=== PATIENT | female | born 1950 | race Caucasian/White ===

== ENCOUNTER → 2016-11-05 | Outpatient (CLI) | payer MEDICARE, OTHER ==
--- NOTE | 2016-11-06 13:01 | MM ---
Reason for exam: screening (asymptomatic). Last mammogram was performed 1 year and 2 months ago. History: Patient is postmenopausal and had first child at age 32. Benign US biopsy breast VAD LT of the left breast, March 01, 2014. Benign excisional biopsy, 2001. Physical Findings: A clinical breast exam by your physician is recommended on an annual basis and results should be correlated with mammographic findings. MG 3D Screening Mammo W/Cad Bilateral CC and MLO view(s) were taken. Prior study comparison: September 15, 2015, bilateral MG 3d screening mammo w/cad. September 09, 2014, left breast MG diagnostic mammo LT w CAD. There are scattered fibroglandular densities. Finding: There are typically benign calcifications in both breasts. Previous mammotome biopsy in the left breast. No discrete abnormality. No significant changes in finding since September 15, 2015 and September 09, 2014. ASSESSMENT: Benign, BI-RAD 2 RECOMMENDATION: Routine screening mammogram of both breasts in 1 year.
== END | disposition home or self-care (01) ==
LOC: RADMAMWWP 07:25
PROVIDERS: ATTEND Internal Medicine
DX: Z12.31 Encounter for screening mammogram for malignant neoplasm of breast (principal)
CPT/HCPCS: 77063; G0202

== ENCOUNTER → 2017-03-04 | Outpatient (CLI) | payer MEDICARE, OTHER ==
--- NOTE | 2017-03-04 14:23 | XR ---
EXAMINATION TYPE: XR chest 2V DATE OF EXAM: 03/04/2017 HISTORY: Chills R68.83. REFERENCE: NONE. FINDINGS: The heart is enlarged. There are bibasilar infiltrates. This is greater on the left than th e right. Heart size is obscured. I cannot exclude a small left effusion. IMPRESSION: 1. BIBASILAR INFILTRATES. 2. I CANNOT EXCLUDE A SMALL LEFT EFFUSION. 3. CARDIOMEGALY.
== END | disposition home or self-care (01) ==
LOC: RADXRMAIN 13:44
PROVIDERS: ATTEND Internal Medicine
DX: R91.8 Other nonspecific abnormal finding of lung field (principal); I51.7 Cardiomegaly; R68.83 Chills (without fever)
CPT/HCPCS: 71020

== ENCOUNTER → 2017-04-01 | Outpatient (CLI) | payer MEDICARE, OTHER ==
--- NOTE | 2017-04-01 15:51 | XR ---
EXAMINATION TYPE: XR chest 2V DATE OF EXAM: 04/01/2017 COMPARISON: Prior chest x-ray 03/04/2017 HISTORY: Pneumonia, J18.9 TECHNIQUE: Frontal and lateral views of the chest are obtained. FINDINGS: The patient is rotated. Cardiac mediastinal silhouette, pulmonary vascularity and yolande are stable. Aeration is thought to be improved. No pneumothorax or pleural effusion is evident. IMPRESSION: Rotated exam. No acute abnormalities evident. There is improvement in lung volume.
== END | disposition home or self-care (01) ==
LOC: RADXRMAIN 14:40
PROVIDERS: ATTEND Internal Medicine
DX: J18.9 Pneumonia, unspecified organism (principal)
CPT/HCPCS: 71020

== ENCOUNTER → 2017-04-04 | Outpatient (CLI) | payer MEDICARE, OTHER ==
[2017-04-04 16:36] LABS: Blood Urea Nitrogen 29 mg/dL (7-17); Non-African American GFR(MDRD) >60 (>60 ml/min/1.73 sqM)
== END | disposition home or self-care (01) ==
LOC: LABPAT 15:44
PROVIDERS: ATTEND Anesthesiology
DX: Z01.812 Encounter for preprocedural laboratory examination (principal)
CPT/HCPCS: 82565; 84520

== ENCOUNTER 2017-04-09 09:13 | Day surgery (SDC) | payer MEDICARE, OTHER ==
[2017-04-04 14:41] VITALS: BMI 46.0
--- NOTE | 2017-04-08 22:50 | HP ---
DATE OF SURGERY: 04/09/2017 Millie Cooney is a 66-year-old patient seen with symptomatic right carpal tunnel syndrome. We discussed options. She elected to proceed with decompression of her median nerve. Consent was obtained. PAST MEDICAL HISTORY: 1. Insulin-dependent diabetes. 2. Hypertension. 3. Seizure disorder. PAST SURGICAL HISTORY: 1. section. 2. Decompression, left medial nerve. DAILY MEDICATIONS: 1. Depakote. 2. Glucotrol. 3. Lantus insulin. 4. Lasix. 5. Lisinopril. ALLERGIES: CODEINE. SOCIAL HISTORY: Patient denies current tobacco use. PHYSICAL EVALUATION OF HER RIGHT HAND: She has positive carpal compression and carpal Tinel's which caused numbness and tingling within the median nerve distribution. There is no evidence for any trigger digits. She does have some decreased light touch throughout the median nerve distribution. There is a good radial pulse present. There is good perfusion distally. Radiographs of the right wrist revealed osteoarthritic changes. EMG of the upper extremity revealed carpal tunnel syndrome. IMPRESSION: Right carpal tunnel syndrome. PLAN: Decompression, right median nerve. MTDD
[~2017-04-09 09:13] MED LIST: HYDROmorphone 1 MG/ML 1 ML SYRINGE IVP PRN; LACTATED RINGERS 1,000 ML IV SCH; LIDOCAINE 1% 20 ML VIAL (10MG/ML) FOR IV START INTRADERMA PRN; ONDANSETRON 4 MG/2 ML VIAL IVP PRN; ceFAZolin 2 GM in SODIUM CHLORIDE 0.9% 100 ML IVPB STA
[2017-04-09 09:58] VITALS: TEMP 97
[2017-04-09 10:00] LABS: Glucose,Whole Blood 130 mg/dL (75-99)
[2017-04-09] MEDS ORDERED: LIDOCAINE 1% INJ 10MG/ML (20 ML MDV) ONE (11:47)
[2017-04-09] MEDS ORDERED: MIDAZOLAM 2 MG/2 ML VIAL ONE (11:47)
[2017-04-09] MEDS ORDERED: fentaNYL (PF) 50 MCG/ML 2 ML AMP ONE (11:47)
[2017-04-09] MEDS ORDERED: PROPOFOL 10 MG/ML 20 ML VIAL IV ONE (11:47)
[2017-04-09 12:20] VITALS: RESP 16
--- NOTE | 2017-04-09 12:20 | P.OP ---
Date of Procedure: 04/09/17 Preoperative Diagnosis: Right carpal tunnel syndrome Postoperative Diagnosis: Right carpal tunnel syndrome Procedure(s) Performed: Decompression right median nerve Implants: Anesthesia: MAC, local Surgeon: Brent Sebastian Estimated Blood Loss (ml): 1 Pathology: none sent Condition: stable Disposition: PACU Indications for Procedure: 66-year-old patient seen with symptomatic carpal tunnel syndrome. After having treatment options discussed, she elected to proceed with decompression right median nerve. Operative Findings: see description of procedure Description of Procedure: The patient was taken to the operative suite. The patient received preoperative IV antibiotics. The patient underwent IV sedation by the department of anesthesia. A well-padded tourniquet was placed along the proximal right upper extremity. The right upper extremity was prepped and draped in the normal sterile orthopedic fashion. I infiltrated the proposed incision site with 12 mL of quarter percent plain Marcaine. When sufficient local analgesia was noted the extremity was elevated and tourniquet was insufflated 250. I now made an incision beginning at the distal volar wrist crease extending distally approximately 3 cm in line with the fourth metacarpal. Dissection was taken through subcu soft tissues down through the palmar fascia to the transverse carpal ligament. I now incised the transverse carpal ligament. I completed the release proximally and distally with blunt Metzenbaums. There was good complete release of the transverse carpal ligament and good decompression of the nerve. The wound was irrigated. There was good hemostasis. The skin margins are approximate nylon suture. We applied sterile dressings followed by loose web bone Paul bandage. The tourniquet was now released and we had immediate capillary refill of all digits. The patient was then awakened, transferred to recovery in stable condition.
[2017-04-09 12:42] VITALS: BP 121/58; PULSE 77
== END 2017-04-09 13:07 | disposition home or self-care (01) ==
LOC: OR 09:13
PROVIDERS: ATTEND Orthopaedic Surgery
DX: G56.01 Carpal tunnel syndrome, right upper limb (principal); E11.9 Type 2 diabetes mellitus without complications; I10 Essential (primary) hypertension; G40.909 Epilepsy, unspecified, not intractable, without status epilepticus; M10.9 Gout, unspecified; Z88.5 Allergy status to narcotic agent; Z79.4 Long term (current) use of insulin; Z79.84 Long term (current) use of oral hypoglycemic drugs; Z79.82 Long term (current) use of aspirin; Z79.899 Other long term (current) drug therapy
CPT/HCPCS: 64721; J2250; J0690; J2405; J2001; J3010; J2704

== ENCOUNTER → 2019-03-15 | Outpatient (CLI) | payer MEDICARE, OTHER ==
--- NOTE | 2019-03-15 23:30 | BD ---
EXAMINATION TYPE: Axial Bone Density DATE OF EXAM: 03/15/2019 COMPARISON:2016 CLINICAL HISTORY: 68-year-old female disorder of bone Height: 5'2 1/2 Weight: 272 FRAX RISK QUESTIONS: Secondary Osteoporosis: 3. Menopause before 45: y RISK FACTORS HISTORY OF: Active: n Postmenopausal woman: y Frequent falls: y Poor Health: y MEDICATIONS: Additional Medications: seizure disorder, metformin type 2 diabetes, Additional History: EXAM MEASUREMENTS: Bone mineral densitometry was performed using the [employer]. Bone mineral density as measured about the Lumbar spine is: ----- L1-L4(G/cm2): 1.341 T Score Values are as follows: ----- L2: 1.8 ----- L3: 1.2 ----- L4: 0.3 ----- L1-L4: 0.3 Bone mineral density has: Decreased -3.3% since study of: 09/15/2015 Bone mineral density about the R hip (g/cm2): 0.838 Bone mineral density about the L hip (g/cm2): 0.909 T Score values are as follows: -----R Neck: -1.4 -----L Neck: -0.9 -----R Total: -0.5 -----L Total: 0.2 Bone mineral density has: Decreased -9.5% since study of: 09/15/2015 IMPRESSION: Osteopenia (T Score between -2.5 and -1). There is slightly increased risk of fracture and the patient may be considered for treatment. Re-Screen 2-5 years. NOTE: T-SCORE=SD OF THE YOUNG ADULT MEAN.
--- NOTE | 2019-03-16 13:08 | MM ---
Reason for exam: screening (asymptomatic). Last mammogram was performed 1 year and 3 months ago. History: Patient is postmenopausal and had first child at age 32. Benign US biopsy breast VAD LT of the left breast, March 01, 2014. Benign excisional biopsy, 2001. Physical Findings: A clinical breast exam by your physician is recommended on an annual basis and results should be correlated with mammographic findings. MG 3D Screening Mammo W/Cad Bilateral CC and MLO view(s) were taken. Prior study comparison: December 24, 2017, bilateral MG 3d screening mammo w/cad. November 05, 2016, bilateral MG 3d screening mammo w/cad. There are scattered fibroglandular densities. Benign appearing bilateral calcifications. No suspicious abnormality. No significant changes when compared with prior studies. ASSESSMENT: Benign, BI-RAD 2 RECOMMENDATION: Routine screening mammogram of both breasts in 1 year.
== END | disposition home or self-care (01) ==
LOC: RADMAMWWP 08:48
PROVIDERS: ATTEND Internal Medicine
DX: Z12.31 Encounter for screening mammogram for malignant neoplasm of breast (principal); M85.88 Other specified disorders of bone density and structure, other site; N95.1 Menopausal and female climacteric states
CPT/HCPCS: 77063; 77067; 77080

== ENCOUNTER → 2019-07-15 | Outpatient (CLI) | payer MEDICARE, OTHER ==
--- NOTE | 2019-07-15 20:17 | CONS ---
CONSULTATION DATE OF SERVICE: 07/15/2019. 68-year-old lady who has been evaluated in the sleep center for possible obstructive sleep apnea-hypopnea syndrome. HISTORY OF PRESENT ILLNESS/SLEEP WAKE EVALUATION: SLEEP SCHEDULE: Patient's usual sleep schedule formal on 11 or 11:30 p.m. until 8:30 or 8:45 am. FALLING ASLEEP: She sometimes has problems with falling asleep. Has TV set in bedroom. DURING SLEEP: Usually sleeps on the side position by herself so no clear information about her breathing and possible snoring during the sleep. She has episodes of restless legs while falling asleep. During the night, she wakes up several times with nocturia and episodes of sweating and she has drooling from her mouth during the sleep. DURING THE DAY/SLEEP WAKE EVALUATION: In the morning, she has difficulties to pay attention, falling asleep during the day. [place] Sleepiness Scale is in very high range of 18. She may take 1 or 2 naps, usually in the afternoon. She usually feels refreshed after naps. No vivid dreams during naps. No history of hypnagogic hallucinations, sleep paralysis or cataplexy. PAST MEDICAL HISTORY: Positive for diabetes mellitus, hyperlipidemia, seizures in the past, gout. PAST SURGICAL HISTORY: Hemorrhoidectomy, , bilateral surgery for carpal tunnel syndrome. REVIEW OF SYSTEMS: Awakenings from sleep, significant excessive daytime sleepiness, swelling of the legs. FAMILY HISTORY: Family history of thyroid problems, ovarian cancer. SOCIAL HISTORY: Negative for smoking or using alcohol. MEDICATIONS: Depakote, Glucotrol, simvastatin, Lasix, metformin, allopurinol, lisinopril, spironolactone, NovoLog, different types of vitamins and aspirin. PHYSICAL EXAM: lady without distress. BP 125/61, HR 85, RR 14, height 5 feet 2 inches, weight 271.8. Body mass index 49.5, temperature 98.4, oxygen saturation on room air 100%. HEENT: Oropharynx: Low position of soft palate, Mallampati 3-4. Slight restriction of nasal breathing. Wide neck 16-3/4 inches in circumference. NECK: Supple, no JVD. Thyroid is not palpable. LUNGS: Clear to percussion and to auscultation. Good air exchange. No wheezing or rhonchi. HEART: S1, S2 regular. No murmurs, gallops, or rubs. ABDOMEN: Obese. Soft and nontender. Bowel sounds are present. No organomegaly appreciated. EXTREMITIES: 1+ bilateral ankle edema. No clubbing or cyanosis. PRESIDENT CELEBRITY ACQUISTION: Awake, alert, and oriented X3. Cranial nerves 2 to 7 intact. There is no fasciculation or atrophy. noted. No focal deficits observed. IMPRESSION: 1. Multiple awakenings from sleep, extremely low position of soft palate, Mallampati 3- 4, wide neck, significant excessive daytime sleepiness, obstructive sleep apnea- hypopnea syndrome. 2. Obesity, body mass index 49.5. 3. Diabetes mellitus. 4. History of seizures in the past. 5. History of gout. 6. History of restless leg symptoms. 7. Status post hemorrhoidectomy. 8. Status post . 9. Status post carpal tunnel syndrome surgery bilaterally. 10.Hyperlipidemia. PLAN: 1. Polysomnography for evaluation of patient's breathing during sleep. 2. CPAP/BiPAP titration if sleep study confirms obstructive sleep apnea-hypopnea syndrome. 3. Preferable position during sleep on the side. 4. No driving if patient feels any sleepiness. 5. I will see patient for follow up visit to explain results of testing and following plan. Thank you very much for referring this patient for consultation. Sincerely, Joe Oleary MD, PhD, FAASM Diplomat of [place] [employer] of Medical Specialties [place] Board of Internal Medicine [facility] [place] MMODL / IJN: [id number] /
== END | disposition home or self-care (01) ==
LOC: SLEEP 13:56
PROVIDERS: ATTEND Internal Medicine
DX: G47.33 Obstructive sleep apnea (adult) (pediatric) (principal); E66.9 Obesity, unspecified; E78.5 Hyperlipidemia, unspecified; E11.9 Type 2 diabetes mellitus without complications; Z68.42 Body mass index [BMI] 45.0-49.9, adult; Z86.69 Personal history of other diseases of the nervous system and sense organs; Z87.39 Personal history of other diseases of the musculoskeletal system and connective tissue; Z98.890 Other specified postprocedural states; Z79.4 Long term (current) use of insulin; Z79.82 Long term (current) use of aspirin; Z79.899 Other long term (current) drug therapy
CPT/HCPCS: 99211

== ENCOUNTER → 2020-12-14 | Outpatient (CLI) | payer MEDICARE, OTHER ==
--- NOTE | 2020-12-18 08:57 | MM ---
Reason for exam: screening (asymptomatic). Last mammogram was performed 1 year and 9 months ago. History: Patient is postmenopausal and had first child at age 32. Family history of breast cancer in sister at age 66. Benign US biopsy breast VAD LT of the left breast, March 01, 2014. Benign excisional biopsy, 2001. Physical Findings: A clinical breast exam by your physician is recommended on an annual basis and results should be correlated with mammographic findings. MG 3D Screening Mammo W/Cad Bilateral CC and MLO view(s) were taken. Prior study comparison: March 15, 2019, bilateral MG 3d screening mammo w/cad. December 24, 2017, bilateral MG 3d screening mammo w/cad. Finding: There is a typically benign equal density (isodense), indistinct round mass located 4 cm from the nipple in the outer quadrant, middle position of the left breast consistent with probable summation. Previous mammotome biopsy in the left breast. New finding since March 15, 2019 and December 24, 2017. ASSESSMENT: Incomplete: need additional imaging evaluation, BI-RAD 0 RECOMMENDATION: Special view mammogram of the left breast. If lesion persists on supplemental views, image directed ultrasound is recommended. [facility] will attempt to contact patient to return for supplemental views and ultrasound if indicated.
== END | disposition home or self-care (01) ==
LOC: RADMAMWWP 09:30
PROVIDERS: ATTEND Internal Medicine
DX: Z12.31 Encounter for screening mammogram for malignant neoplasm of breast (principal)
CPT/HCPCS: 77063; 77067

== ENCOUNTER → 2020-12-19 | Outpatient (CLI) | payer MEDICARE, OTHER ==
--- NOTE | 2020-12-19 13:23 | MM ---
Reason for exam: additional evaluation requested from abnormal screening. Last mammogram was performed less than 1 month ago. History: Patient is postmenopausal and had first child at age 32. Family history of breast cancer in sister at age 66. Benign US biopsy breast VAD LT of the left breast, March 01, 2014. Benign excisional biopsy, 2001. Physical Findings: Nurse did not find any significant physical abnormalities on exam. MG 3D Work Up W/Cad LT Spot compression CC, spot compression MLO, and LM view(s) were taken of the left breast. Prior study comparison: December 14, 2020, bilateral MG 3d screening mammo w/cad. March 15, 2019, bilateral MG 3d screening mammo w/cad. There are scattered fibroglandular densities. Previous mammotome biopsy in the left breast. Benign secretory calcifications. Lateral asymmetric density disperses on additional views. No significant new findings when compared with previous films. These results were verbally communicated with the patient and result sheet given to the patient on 12/19/20. ASSESSMENT: Benign, BI-RAD 2 RECOMMENDATION: Return to routine screening mammogram schedule for both breasts.
== END | disposition home or self-care (01) ==
LOC: RADMAMWWP 09:02
PROVIDERS: ATTEND Internal Medicine
DX: R92.8 Other abnormal and inconclusive findings on diagnostic imaging of breast (principal); Z78.0 Asymptomatic menopausal state; Z80.3 Family history of malignant neoplasm of breast
CPT/HCPCS: 77065; G0279; 77061

== ENCOUNTER 2021-01-10 07:36 | Day surgery (SDC) | payer MEDICARE, OTHER ==
[2021-01-05 15:48] VITALS: BMI 49.2
[~2021-01-10 07:36] MED LIST changes: -HYDROmorphone 1 MG/ML 1 ML SYRINGE IVP PRN; +LIDOCAINE 1% (10MG/ML) FOR IV START INTRADERMA PRN; -LIDOCAINE 1% 20 ML VIAL (10MG/ML) FOR IV START INTRADERMA PRN; -ONDANSETRON 4 MG/2 ML VIAL IVP PRN; -ceFAZolin 2 GM in SODIUM CHLORIDE 0.9% 100 ML IVPB STA
[2021-01-10] MEDS ORDERED: PROPOFOL 10 MG/ML 20 ML VIAL IV ONE (08:14)
[2021-01-10 08:15] VITALS: TEMP 97
[2021-01-10 08:17] LABS: Glucose,Whole Blood 145 mg/dL (75-99)
--- NOTE | 2021-01-10 08:28 | P.PCN ---
Date of Procedure: 01/10/21 Procedure(s) Performed: BRIEF HISTORY: Patient is a 70-year-old pleasant white male scheduled for an elective colonoscopy as a part of evaluation of prior history of colon polyps. Her last colonoscopy was 5 years ago. PROCEDURE PERFORMED: Colonoscopy with biopsy. PREOPERATIVE DIAGNOSIS: . history of colon polyps IV sedation per Anesthesia. PROCEDURE: After informed consent was obtained, the patient, was brought into the endoscopy unit. IV sedation was administered by Anesthesia under continuous monitoring. Digital rectal examination was normal. Initially the Olympus CF-160 flexible video colonoscope was then inserted in the rectum, gradually advanced into the cecum without any difficulty. Careful examination was performed as the scope was gradually being withdrawn. Ileocecal valve and the appendiceal orifice were visualized and appeared normal. Prep was excellent. Mucosa of the cecum, appeared normal. Ascending colon there was a 2 mm polyp that was removed by cold biopsy. Rest of the ascending colon, transverse colon, descending colon, sigmoid colon, and rectum appeared normal. Retroflexion was performed in the rectum and no lesions were seen. The patient tolerated the procedure well. IMPRESSION: 3 mm ascending colon polyp status post removal by cold biopsy Rest of the colon appeared normal RECOMMENDATIONS: Findings of this examination were discussed with the patient as well as her family. She was advised to follow with the biopsy results. If the biopsy shows an adenoma she can have a repeat colonoscopy in 5 years
[2021-01-10 08:38] VITALS: RESP 16
[2021-01-10 08:54] VITALS: BP 111/53; PULSE 85
== END 2021-01-10 09:05 | disposition home or self-care (01) ==
LOC: ORWHC2ENDO 07:36
PROVIDERS: ATTEND Internal Medicine Gastroenterology
DX: Z12.11 Encounter for screening for malignant neoplasm of colon (principal); D12.2 Benign neoplasm of ascending colon; Z86.010 Personal history of colon polyps; I10 Essential (primary) hypertension; E78.5 Hyperlipidemia, unspecified; G47.33 Obstructive sleep apnea (adult) (pediatric); E11.9 Type 2 diabetes mellitus without complications; N28.9 Disorder of kidney and ureter, unspecified; E07.9 Disorder of thyroid, unspecified; M10.9 Gout, unspecified; G40.909 Epilepsy, unspecified, not intractable, without status epilepticus; Z79.82 Long term (current) use of aspirin; Z79.899 Other long term (current) drug therapy; Z79.4 Long term (current) use of insulin; Z88.5 Allergy status to narcotic agent
CPT/HCPCS: 88305; 45380; J2704

== ENCOUNTER 2021-03-08 06:09 | Emergency (ER) | payer MEDICARE, OTHER ==
[2021-03-08] MEDS ORDERED: KETOROLAC 15 MG/ML 1 ML VIAL IM STA (06:31)
--- NOTE | 2021-03-08 06:39 | ED ---
General Adult HPI - General Chief complaint: Back Pain/Injury Stated complaint: Back Pain Time Seen by Provider: 03/08/21 06:18 Source: EMS, RN notes reviewed Mode of arrival: EMS Limitations: no limitations - History of Present Illness Initial comments: 70-year-old female with a past medical history of diabetes mellitus, carpal tunnel, gout presents to the emergency room for a chief complaint of back pain. Patient reports that she was getting out of bed this morning to go to the bathroom and felt a sudden pain in the right low back. States it radiated around into her right hip and shot down her right leg. Patient states when she walks or lifts her leg it worsens the pain. Patient did not take anything for the pain. Patient denies bladder or bowel changes, saddle anesthesia, fever, weakness of the legs. Patient denies any injury to the back.Patient has no other complaints at this time including shortness of breath, chest pain, abdominal pain, nausea or vomiting, headache, or visual changes. - Related Data Home Medications Medication Instructions Recorded Confirmed Aspirin 81 mg PO DAILY 07/10/15 01/10/21 Biotin 5 mg PO 1200 07/10/15 01/10/21 Divalproex [Depakote] 500 mg PO BID 07/10/15 01/10/21 Multivitamins, Thera [Theragran] 1 each PO DAILY 07/10/15 01/10/21 allopurinoL [Zyloprim] 300 mg PO DAILY 07/10/15 01/10/21 glipiZIDE [Glucotrol] 10 mg PO BID 07/10/15 01/10/21 lisinopriL [Zestril] 5 mg PO HS 07/10/15 01/10/21 metFORMIN HCL [Glucophage] 500 mg PO DAILY 04/04/17 01/10/21 Furosemide [Lasix] 60 mg PO DAILY 01/05/21 01/10/21 Insulin Aspart [NovoLOG Flexpen] 14 units SQ TID 01/05/21 01/10/21 Insulin Glargine,Hum.rec.anlog 46 unit SQ HS 01/05/21 01/10/21 [Basaglar Kwikpen U-100] Levothyroxine Sodium [Synthroid] 50 mcg PO DAILY 01/05/21 01/10/21 Simvastatin [Zocor] 20 mg PO HS 01/05/21 01/10/21 Spironolactone 25 mg PO BID 01/05/21 01/10/21 Previous Rx's Medication Instructions Recorded Acetaminophen [Tylenol] 500 mg PO Q4-6H PRN #20 tab 03/08/21 Allergies Allergy/AdvReac Type Severity Reaction Status Date / Time codeine Allergy "high" Verified 01/10/21 08:02 feeling Review of Systems ROS Statement: Those systems with pertinent positive or pertinent negative responses have been documented in the HPI. ROS Other: All systems not noted in ROS Statement are negative. Past Medical History Past Medical History: Diabetes Mellitus, Seizure Disorder Additional Past Medical History / Comment(s): gout, carpal tunnel rt History of Any Multi-Drug Resistant Organisms: None Reported Past Surgical History: Breast Surgery, Section, Orthopedic Surgery, Tubal Ligation Additional Past Surgical History / Comment(s): hemorroidectomy,geronimo breast biopsies, rt lumpectomy, bilat carpal tunnel Past Anesthesia/Blood Transfusion Reactions: Previous Problems w/ Anesthesia Additional Past Anesthesia/Blood Transfusion Reaction / Comment(s): postop- "moisture in my lungs"- cough for 3 weeks and on antibiotics Past Psychological History: No Psychological Hx Reported Smoking Status: Never smoker Past Alcohol Use History: None Reported Past Drug Use History: None Reported - Past Family History Mother Family Medical History: Cancer Father Family Medical History: Cancer General Exam Limitations: no limitations General appearance: alert, in no apparent distress Head exam: Present: atraumatic, normocephalic, normal inspection Eye exam: Present: normal appearance, PERRL, EOMI. Absent: scleral icterus, conjunctival injection, periorbital swelling ENT exam: Present: normal exam, mucous membranes moist Neck exam: Present: normal inspection, full ROM. Absent: tenderness, meningismus, lymphadenopathy Respiratory exam: Present: normal lung sounds bilaterally. Absent: respiratory distress, wheezes, rales, rhonchi, stridor Cardiovascular Exam: Present: regular rate, normal rhythm, normal heart sounds. Absent: systolic murmur, diastolic murmur, rubs, gallop, clicks GI/Abdominal exam: Present: soft, normal bowel sounds. Absent: distended, tenderness, guarding, rebound, rigid Extremities exam: Present: normal capillary refill (Capillary refill less than 2 seconds, DP pulse 2+ right lower extremity.), pedal edema (She does have bilateral pedal edema which she states is chronic), other (Positive straight leg raise test). Absent: calf tenderness Back exam: Present: paraspinal tenderness (Right-sided lumbar paraspinal tenderness.). Absent: vertebral tenderness Course Vital Signs 03/08/21 03/08/21 03/08/21 06:11 07:01 07:45 Temperature 98.4 F Pulse Rate 89 81 81 Respiratory 18 18 18 Rate Blood Pressure 136/69 132/48 126/49 O2 Sat by Pulse 96 96 93 L Oximetry Medical Decision Making - Medical Decision Making Vitals are stable. Patient well-appearing. She has right-sided low back pain that radiates to the right leg. Positive straight leg raise test. DP pulse 2+. Chronic pedal edema. Patient given Toradol and Norflex and did have significant permanent symptoms. She was able to get up without difficulty to use the bathroom. Patient is diabetic, sugars have been running 120-140. Patient likely has lumbar radiculopathy. We will try tramadol for patient as needed. She can also try Tylenol. She will follow-up with her doctor and ortho. She will return for any worsening symptoms. Patient will not be started on steroids given diabetes. - Lab Data Lab Results 03/08/21 Range/Units 06:48 Urine Color Yellow Urine Appearance Clear (Clear) Urine pH 7.0 (5.0-8.0) Ur Specific [place] 1.011 (1.001-1.035) Urine Protein 1+ H (Negative) Urine Glucose (UA) 4+ H (Negative) Urine Ketones Trace H (Negative) Urine Blood Trace H (Negative) Urine Nitrite Negative (Negative) Urine Bilirubin Negative (Negative) Urine Urobilinogen <2.0 (<2.0) mg/dL Ur Leukocyte Esterase Negative (Negative) Urine RBC 1 (0-5) /hpf Urine WBC 1 (0-5) /hpf Ur Squamous Epith Cells 2 (0-4) /hpf Urine Bacteria Rare H (None) /hpf Disposition Clinical Impression: Mechanical back pain, Lumbar radiculopathy Disposition: HOME SELF-CARE Condition: Good Instructions (If sedation given, give patient instructions): Acute Low Back Pain (ED) Additional Instructions: Please take Tylenol for pain. If pain is severe take tramadol. Remember tramadol can increase risk of falls. follow-up with orthopedics and primary care. Return to the emergency room for any worsening symptoms. Prescriptions: Acetaminophen [Tylenol] 500 mg PO Q4-6H PRN #20 tab PRN Reason: Pain Is patient prescribed a controlled substance at d/c from ED?: No Referrals: Michael Matute MD [Primary Care Provider] - 1-2 days Time of Disposition: 08:22
[2021-03-08] MEDS: ORPHENADRINE 30 MG/ML 2 ML VIAL IM STA ×2 (06:53→06:56)
[2021-03-08] MEDS ORDERED: ORPHENADRINE 30 MG/ML 2 ML VIAL IVP STA (06:55)
[2021-03-08] MEDS ORDERED: KETOROLAC 15 MG/ML 1 ML VIAL IVP STA (06:55)
--- NOTE | 2021-03-08 07:49 | XR ---
EXAMINATION TYPE: XR lumbar spine 2 or 3V DATE OF EXAM: 03/08/2021 CLINICAL HISTORY: Pain, right lumbar radiculopathy TECHNIQUE: Frontal, lateral, and oblique images of the lumbar spine are obtained. COMPARISON: None FINDINGS: For counting, there are 6 lumbar vertebral bodies with partial sacralization of L6. Mainten ance of the normal lumbar lordosis. No loss of vertebral body height to suggest acute compression fra cture. There are degenerative changes including anterior osteophytes, mild multilevel intervertebral disc space narrowing and facet hypertrophy. Atherosclerotic abdominal aorta. Paravertebral soft tissu es are otherwise grossly unremarkable. IMPRESSION: 1. Multilevel degenerative changes including intervertebral disc space narrowing, anterior osteophyte s, and facet hypertrophy.
--- NOTE | 2021-03-08 07:56 | XR ---
EXAMINATION TYPE: XR pelvis AP view DATE OF EXAM: 03/08/2021 CLINICAL HISTORY: Pelvic pain TECHNIQUE: A single AP view of the pelvis is obtained. COMPARISON: None. FINDINGS: There is no acute fracture/dislocation evident in the pelvis on this single view. Mild deg enerative narrowing and sclerosis of the acetabula bilaterally suggestive of mild osteoporosis. Degen erative changes of lower lumbar spine. The overlying soft tissue appears unremarkable. IMPRESSION: 1. No evidence of acute fracture of the pelvis. Mild degenerative changes of the hips.
[2021-03-08 08:01] LABS: Appearance,Urine Clear (Clear); Bacteria,Urine Rare /hpf; Bilirubin,Urine Negative (Negative); Blood,Urine Trace (Negative); Color,Urine Yellow; Glucose,Urine (UA) 4+ (Negative); Ketones,Urine Trace (Negative); Leukocyte Esterase,Urine Negative (Negative); Nitrite,Urine Negative (Negative); Protein,Urine 1+ (Negative); RBC,Urine 1 /hpf (0-5); Specific Gravity,Urine 1.011 (1.001-1.035); Squamous Epithelial Cell,Urine 2 /hpf (0-4); Urobilinogen,Urine <2.0 mg/dL (<2.0); WBC,Urine 1 /hpf (0-5)
[2021-03-08] MEDS ORDERED: traMADol 50 MG STARTER PACK 3 TAB BTL PO STA (08:23)
[2021-03-08 08:44] LABS: Glucose,Whole Blood 146 mg/dL (75-99)
[2021-03-08 08:54] VITALS: BP 143/66; PULSE 80; RESP 16; TEMP 97.7
== END 2021-03-08 08:55 | disposition home or self-care (01) ==
LOC: EC 06:09
DX: M54.16 Radiculopathy, lumbar region (principal); E11.9 Type 2 diabetes mellitus without complications; Z79.4 Long term (current) use of insulin; Z98.51 Tubal ligation status; Z79.82 Long term (current) use of aspirin
CPT/HCPCS: 36415; 81001; 72100; 72170; 99284; 96374; 96375; J2360; J1885

== ENCOUNTER → 2021-03-26 | Outpatient (CLI) | payer MEDICARE, OTHER ==
[2021-03-26 14:56] LABS: HCT 37.1 % (37.2-46.3); HGB 11.7 g/dL (12.0-15.0); MCH 28.5 pg (27.0-32.0); MCHC 31.5 g/dL (32.0-37.0); MCV 90.5 fL (80.0-97.0); Mean Platelet Volume 9.3 fL (9.5-12.2); Platelet Count 341 X 10*3/uL (140-440); RDW 13.8 % (11.5-14.5); WBC 8.52 X 10*3/uL (4.50-10.00)
[2021-03-26 15:55] LABS: African American GFR (CKD) 66.6 (60.0-200.0); Albumin 4.3 g/dL (3.80-4.90); Albumin/Globulin Ratio 1.95 (1.60-3.17); Anion Gap 8.3 mmol/L (4.00-12.00); Calcium 9.1 mg/dL (8.7-10.3); Carbon Dioxide 25.7 mmol/L (21.6-31.8); Chol/HDL Ratio 2.9; Globulin 2.2 g/dL (1.6-3.3); LDL Cholesterol,Calculated 70.8 mg/dL (0.0-131.0); Non-African American GFR(CKD) 57.4 (60.0-200.0); Potassium 5.2 mmol/L (3.5-5.5); Total Bilirubin 0.3 mg/dL (0.3-1.2); Total Protein 6.5 g/dL (6.2-8.2); VLDL Calculation 24.2 mg/dL (5.00-40.00)
== END | disposition home or self-care (01) ==
LOC: LABWHC1 08:42
PROVIDERS: ATTEND Internal Medicine Interventional Cardiology
DX: E78.2 Mixed hyperlipidemia (principal); I10 Essential (primary) hypertension; R60.0 Localized edema
CPT/HCPCS: 36415; 80053; 80061; 83880; 84443; 85027

== ENCOUNTER → 2022-02-07 | Outpatient (CLI) | payer MEDICARE ==
[2022-02-07 12:18] LABS: Creatinine,Urine Random 57.4 mg/dL; Protein/Creatinine Ratio,Urine 0.279
[2022-02-07 14:25] LABS: Basophils # (A) 0.05 X 10*3/uL (0.00-0.10); Basophils % (A) 0.7 %; Eosinophils # (A) 0.15 X 10*3/uL (0.04-0.35); Eosinophils % (A) 2.1 %; HCT 41.1 % (37.2-46.3); HGB 12.7 g/dL (12.0-15.0); Immature Grans, Automated 1.1 %; Lymphocytes # (A) 1.81 X 10*3/uL (0.90-5.00); Lymphocytes % (A) 25.5 %; MCH 28.5 pg (27.0-32.0); MCHC 30.9 g/dL (32.0-37.0); MCV 92.2 fL (80.0-97.0); Mean Platelet Volume 9.8 fL (9.5-12.2); Monocytes # (A) 0.54 X 10*3/uL (0.20-1.00); Monocytes % (A) 7.6 %; NRBC Per 100 WBC 0 /100 WBCS (0.0-0.0); Neutrophils # (A) 4.46 X 10*3/uL (1.80-7.70); Platelet Count 318 X 10*3/uL (140-440); RBC 4.46 X 10*6/uL (4.10-5.20); RDW 13.5 % (11.5-14.5); WBC 7.09 X 10*3/uL (4.50-10.00)
[2022-02-07 15:17] LABS: % Iron Saturation 16.57 (12.00-45.00); ALT 22 U/L (8-44); AST 19 U/L (13-35); African American GFR (CKD) 86.6 (60.0-200.0); Albumin 4.3 g/dL (3.8-4.9); Albumin/Globulin Ratio 1.79 (1.60-3.17); Alkaline Phosphatase 80 U/L (41-126); Blood Urea Nitrogen 33.6 mg/dL (9.0-27.0); Calcium 9.9 mg/dL (8.7-10.3); Carbon Dioxide 25.2 mmol/L (20.0-27.5); Chloride 102 mmol/L (96-109); Chol/HDL Ratio 2.33 Ratio; Ferritin 79.9 ng/mL (10.0-291.0); Globulin 2.4 g/dL (1.6-3.3); Glucose 160 mg/dL (70-110); Iron 53 ug/dL (50-170); LDL Cholesterol,Calculated 58.6 mg/dL (0.0-131.0); Non-African American GFR(CKD) 74.7 (60.0-200.0); Potassium 5.5 mmol/L (3.5-5.5); Sodium 136 mmol/L (135-145); Total Iron Binding Capacity 319 ug/dL (228-460); Total Protein 6.7 g/dL (6.2-8.2); VLDL Calculation 17.96 mg/dL (5.00-40.00)
[2022-02-07 19:14] LABS: Urine Creatinine 55.7 mg/dL (28.0-217.0)
== END | disposition home or self-care (01) ==
LOC: LABWHC1 09:01
PROVIDERS: ATTEND Internal Medicine Endocrinology, Diabetes & Metabolism
DX: E61.1 Iron deficiency (principal); E11.65 Type 2 diabetes mellitus with hyperglycemia; N18.32 Chronic kidney disease, stage 3b; D64.9 Anemia, unspecified; R80.9 Proteinuria, unspecified
CPT/HCPCS: 36415; 80053; 80061; 82043; 82570; 82728; 83036; 83540; 83550; 84156; 84443; 85025

== ENCOUNTER → 2022-08-13 | Outpatient (CLI) | payer MEDICARE ==
[2022-08-13 15:15] LABS: Albumin 4.2 g/dL (3.8-4.9)
[2022-08-13 15:24] LABS: Basophils # (A) 0.05 X 10*3/uL (0.00-0.10); Basophils % (A) 0.7 %; Eosinophils # (A) 0.15 X 10*3/uL (0.04-0.35); Eosinophils % (A) 2.1 %; HCT 38.3 % (37.2-46.3); Immature Grans, Automated 1.1 %; Lymphocytes # (A) 1.63 X 10*3/uL (0.90-5.00); Lymphocytes % (A) 22.5 %; MCH 29.6 pg (27.0-32.0); MCHC 31.3 g/dL (32.0-37.0); MCV 94.3 fL (80.0-97.0); Mean Platelet Volume 10.2 fL (9.5-12.2); Monocytes # (A) 0.64 X 10*3/uL (0.20-1.00); Monocytes % (A) 8.8 %; NRBC Per 100 WBC 0 /100 WBCS (0.0-0.0); Neutrophils # (A) 4.71 X 10*3/uL (1.80-7.70); Neutrophils % (A) 64.8 %; Platelet Count 298 X 10*3/uL (140-440); RBC 4.06 X 10*6/uL (4.10-5.20); RDW 13.4 % (11.5-14.5); WBC 7.26 X 10*3/uL (4.50-10.00)
[2022-08-13 15:57] LABS: Appearance,Urine Cloudy (Clear); Bilirubin,Urine Negative (Negative); Blood,Urine Negative (Negative); Color,Urine Yellow (Yellow); Ketones,Urine Negative (Negative); Nitrite,Urine Negative (Negative); Specific Gravity,Urine 1.015 (1.001-1.030); Urobilinogen,Urine 0.2 (0.2,1.0)
[2022-08-13 18:15] LABS: Bacteria,Urine 2+ /HPF (None Seen); Yeast (UA) Present /LPF (None Seen)
[2022-08-13 18:16] LABS: % Iron Saturation 21.56 (12.00-45.00); African American GFR (CKD) 56.6 (60.0-200.0); Anion Gap 14.6 mmol/L (10.00-18.00); BUN/Creat Ratio 33.54 Ratio (12.00-20.00); Blood Urea Nitrogen 37.9 mg/dL (9.0-27.0); Calcium 9.9 mg/dL (8.7-10.3); Carbon Dioxide 20.6 mmol/L (20.0-27.5); Magnesium 2.3 mg/dL (1.5-2.4); Non-African American GFR(CKD) 48.9 (60.0-200.0); Potassium 4.8 mmol/L (3.5-5.5); Uric Acid 4.9 mg/dL (2.9-7.7)
== END | disposition home or self-care (01) ==
LOC: LABWHC1 08:26
PROVIDERS: ATTEND Internal Medicine Nephrology
DX: N18.32 Chronic kidney disease, stage 3b (principal); N25.81 Secondary hyperparathyroidism of renal origin; E55.9 Vitamin D deficiency, unspecified; M10.9 Gout, unspecified; N39.0 Urinary tract infection, site not specified; D63.1 Anemia in chronic kidney disease
CPT/HCPCS: 36415; 80048; 81001; 82040; 82043; 82306; 82570; 82728; 83540; 83550; 83735; 83970; 84100; 84550; 85025

== ENCOUNTER → 2022-10-10 | Outpatient (CLI) | payer MEDICARE ==
[2022-10-10 14:48] LABS: ALT 17 U/L (8-44); AST 19 U/L (13-35); African American GFR (CKD) 47.8 (60.0-200.0); Albumin 4.2 g/dL (3.8-4.9); Albumin/Globulin Ratio 1.45 (1.60-3.17); Alkaline Phosphatase 72 U/L (41-126); BUN/Creat Ratio 40.77 Ratio (12.00-20.00); Calcium 9.9 mg/dL (8.7-10.3); Carbon Dioxide 21.2 mmol/L (20.0-27.5); Chloride 101 mmol/L (96-109); Globulin 2.9 g/dL (1.6-3.3); Glucose 165 mg/dL (70-110); LDL Cholesterol,Calculated 38.8 mg/dL (0.0-131.0); Non-African American GFR(CKD) 41.2 (60.0-200.0); Sodium 134 mmol/L (135-145); Total Protein 7.1 g/dL (6.2-8.2)
[2022-10-10 22:59] LABS: Urine Creatinine 52.1 mg/dL (28.0-217.0)
== END | disposition home or self-care (01) ==
LOC: LABWHC1 08:30
PROVIDERS: ATTEND Internal Medicine Endocrinology, Diabetes & Metabolism
DX: E11.65 Type 2 diabetes mellitus with hyperglycemia (principal)
CPT/HCPCS: 36415; 80053; 80061; 82043; 82570; 83036; 84443

== ENCOUNTER → 2022-12-16 | Outpatient (CLI) | payer MEDICARE ==
[2022-12-16 16:52] LABS: African American GFR (CKD) 32.7 (60.0-200.0); Anion Gap 13.4 mmol/L (10.00-18.00); BUN/Creat Ratio 38.6 Ratio (12.00-20.00); Blood Urea Nitrogen 68.7 mg/dL (9.0-27.0); Calcium 9.8 mg/dL (8.7-10.3); Carbon Dioxide 19.1 mmol/L (20.0-27.5); Non-African American GFR(CKD) 28.2 (60.0-200.0); Potassium 5.5 mmol/L (3.5-5.5)
== END | disposition home or self-care (01) ==
LOC: LABWHC1 11:01
PROVIDERS: ATTEND Nurse Practitioner Family
DX: N18.32 Chronic kidney disease, stage 3b (principal)
CPT/HCPCS: 36415; 80048

== ENCOUNTER → 2023-01-02 | Outpatient (CLI) | payer MEDICARE ==
[2023-01-03 14:35] LABS: Cryptosporidium Antigen Negative (Negative)
== END | disposition home or self-care (01) ==
LOC: LABWHC1 15:49
PROVIDERS: ATTEND Internal Medicine Nephrology
DX: R19.7 Diarrhea, unspecified (principal)
CPT/HCPCS: 87045; 87046; 87328; 87329

== ENCOUNTER → 2023-01-08 | Outpatient (CLI) | payer MEDICARE ==
[2023-01-08 16:00] LABS: Chol/HDL Ratio 2.39 Ratio; LDL Cholesterol,Calculated 54.6 mg/dL (0.0-131.0); VLDL Calculation 19.76 mg/dL (5.00-40.00)
[2023-01-08 16:01] LABS: ALT 20 U/L (8-44); AST 17 U/L (13-35); African American GFR (CKD) 53.2 (60.0-200.0); Albumin 4.1 g/dL (3.8-4.9); Albumin/Globulin Ratio 1.83 (1.60-3.17); Alkaline Phosphatase 78 U/L (41-126); BUN/Creat Ratio 27.73 Ratio (12.00-20.00); Calcium 9.8 mg/dL (8.7-10.3); Carbon Dioxide 21.2 mmol/L (20.0-27.5); Chloride 108 mmol/L (96-109); Globulin 2.3 g/dL (1.6-3.3); Glucose 160 mg/dL (70-110); Non-African American GFR(CKD) 45.9 (60.0-200.0); Potassium 6.1 mmol/L (3.5-5.5); Sodium 140 mmol/L (135-145); Total Bilirubin <0.15 mg/dL (0.30-1.20); Total Protein 6.4 g/dL (6.2-8.2)
== END | disposition home or self-care (01) ==
LOC: LABWHC1 08:45
PROVIDERS: ATTEND Internal Medicine Endocrinology, Diabetes & Metabolism
DX: E11.65 Type 2 diabetes mellitus with hyperglycemia (principal)
CPT/HCPCS: 36415; 80053; 80061; 82043; 82570; 83036; 84443

== ENCOUNTER → 2023-01-10 | Outpatient (CLI) | payer MEDICARE ==
[2023-01-10 20:41] LABS: Basophils # (A) 0.03 X 10*3/uL (0.00-0.10); Basophils % (A) 0.4 %; Eosinophils # (A) 0.15 X 10*3/uL (0.04-0.35); Eosinophils % (A) 2.1 %; HCT 36.2 % (37.2-46.3); HGB 11.4 g/dL (12.0-15.0); Immature Grans, Automated 1.4 %; Lymphocytes # (A) 1.65 X 10*3/uL (0.90-5.00); Lymphocytes % (A) 22.9 %; MCH 28.9 pg (27.0-32.0); MCHC 31.5 g/dL (32.0-37.0); MCV 91.6 fL (80.0-97.0); Mean Platelet Volume 9.2 fL (9.5-12.2); Monocytes % (A) 9.7 %; NRBC Per 100 WBC 0 /100 WBCS (0.0-0.0); Neutrophils # (A) 4.57 X 10*3/uL (1.80-7.70); Neutrophils % (A) 63.5 %; Platelet Count 342 X 10*3/uL (140-440); RBC 3.95 X 10*6/uL (4.10-5.20)
[2023-01-10 21:25] LABS: Potassium 5.4 mmol/L (3.5-5.5)
[2023-01-10 21:59] LABS: T4, Free (Free Thyroxine) 1.27 ng/dL (0.800-1.800)
== END | disposition home or self-care (01) ==
LOC: LABWHC1 12:45
PROVIDERS: ATTEND Family Medicine
DX: E03.9 Hypothyroidism, unspecified (principal); E87.5 Hyperkalemia; I10 Essential (primary) hypertension
CPT/HCPCS: 36415; 84132; 84439; 84443; 84481; 85025

== ENCOUNTER → 2023-01-29 | Outpatient (CLI) | payer MEDICARE ==
[2023-01-29 15:53] LABS: African American GFR (CKD) 47.8 (60.0-200.0); Anion Gap 12.7 mmol/L (10.00-18.00); BUN/Creat Ratio 38.92 Ratio (12.00-20.00); Blood Urea Nitrogen 50.6 mg/dL (9.0-27.0); Carbon Dioxide 23.3 mmol/L (20.0-27.5); Non-African American GFR(CKD) 41.2 (60.0-200.0); Potassium 4.6 mmol/L (3.5-5.5)
== END | disposition home or self-care (01) ==
LOC: LABWHC1 10:20
PROVIDERS: ATTEND Nurse Practitioner Family
DX: N18.32 Chronic kidney disease, stage 3b (principal)
CPT/HCPCS: 36415; 80048

== ENCOUNTER → 2023-04-11 | Outpatient (CLI) | payer MEDICARE ==
[2023-04-11 16:14] LABS: ALT 25 U/L (8-44); AST 22 U/L (13-35); Albumin 4.2 d/dL (3.8-4.9); Alkaline Phosphatase 79 U/L (41-126); Blood Urea Nitrogen 24.2 mg/dL (9.0-27.0); Calcium 9.9 mg/dL (8.7-10.3); Carbon Dioxide 25.1 mmol/L (21.6-31.8); Chloride 103 mmol/L (96-109); Chol/HDL Ratio 2.14 Ratio; Globulin 2.1 d/dL (1.6-3.3); Glucose 194 mg/dL (70-110); LDL Cholesterol,Calculated 49.2 mg/dL (0.0-131.0); Potassium 5.1 mmol/L (3.5-5.5); Sodium 139 mmol/L (135-145); Total Bilirubin 0.3 mg/dL (0.3-1.2); Total Protein 6.3 d/dL (6.2-8.2)
[2023-04-11 18:49] LABS: Urine Creatinine 92.8 mg/dL (28.0-217.0)
== END | disposition home or self-care (01) ==
LOC: LABWHC1 08:28
PROVIDERS: ATTEND Internal Medicine Endocrinology, Diabetes & Metabolism
DX: E11.65 Type 2 diabetes mellitus with hyperglycemia (principal)
CPT/HCPCS: 36415; 80053; 80061; 82043; 82570; 83036; 84443

== ENCOUNTER → 2023-04-30 | Outpatient (CLI) | payer MEDICARE ==
[2023-04-30 16:29] LABS: ALT 19 U/L (8-44); AST 18 U/L (13-35); Albumin 4.2 d/dL (3.8-4.9); Alkaline Phosphatase 83 U/L (41-126); Blood Urea Nitrogen 36.6 mg/dL (9.0-27.0); Calcium 9.5 mg/dL (8.7-10.3); Carbon Dioxide 24.3 mmol/L (21.6-31.8); Chloride 105 mmol/L (96-109); Glucose 198 mg/dL (70-110); Sodium 139 mmol/L (135-145); Total Bilirubin 0.3 mg/dL (0.3-1.2); Total Protein 6.2 d/dL (6.2-8.2)
--- NOTE | 2023-05-01 11:00 | MM ---
Reason for Exam: Screening (asymptomatic). Last screening mammogram was performed 12 month(s) ago. Patient History: Menarche at age 17. First Full-Term at age 32. Late child-bearing (after 30). Postmenopausal. Benign Excisional Biopsy. 03/01/2014, Benign Core Biopsy on the left side. Sister had breast cancer, age 66. Mother had ovarian cancer, age 75. Risk Values: Reema 5 year model risk: 4.8%. NCI Lifetime model risk: 12.8%. Prior Study Comparison: 12/14/2020 Bilateral Screening Mammogram, [facility]. 12/19/2020 Left Diagnostic Mammogram, [facility]. 04/29/2022 Bilateral MG 3D screening mammo w/cad, [facility]. Tissue Density: There are scattered fibroglandular densities. Findings: Analyzed By CAD. There is no suspicious group of microcalcifications or new suspicious mass in either breast. Overall Assessment: Benign, BI-RAD 2 Management: Screening Mammogram of both breasts in 1 year. . Patient should continue monthly self-breast exams. A clinical breast exam by your physician is recommended on an annual basis. This exam should not preclude additional follow-up of suspicious palpable abnormalities. Note on Reema scores and lifetime risk: 1. A Reema score greater than 3% is considered moderate risk. If this is the case, consider specialist referral to assess eligibility for a risk reducing agent. 2. If overall lifetime risk for the development of breast cancer is 20% or higher, the patient may qualify for future screening with alternating mammogram and breast MRI. Electronically signed and approved by: Pieter Ferraro M.D. Radiologis
== END | disposition home or self-care (01) ==
LOC: RADMAMWWP 08:29
PROVIDERS: ATTEND Family Medicine
DX: Z12.31 Encounter for screening mammogram for malignant neoplasm of breast (principal); R60.0 Localized edema; Z78.0 Asymptomatic menopausal state; Z80.3 Family history of malignant neoplasm of breast; Z80.41 Family history of malignant neoplasm of ovary
CPT/HCPCS: 77063; 77067; 80053

== ENCOUNTER → 2023-07-14 | Outpatient (CLI) | payer MEDICARE ==
[2023-07-14 15:31] LABS: ALT 19 U/L (8-44); AST 19 U/L (13-35); Albumin 4.5 d/dL (3.8-4.9); Alkaline Phosphatase 86 U/L (41-126); Blood Urea Nitrogen 29.1 mg/dL (9.0-27.0); Calcium 10.7 mg/dL (8.7-10.3); Carbon Dioxide 24.3 mmol/L (21.6-31.8); Chloride 106 mmol/L (96-109); Chol/HDL Ratio 2.09 Ratio; Globulin 2.5 d/dL (1.6-3.3); Glucose 81 mg/dL (70-110); LDL Cholesterol,Calculated 52.1 mg/dL (0.0-131.0); Potassium 5.5 mmol/L (3.5-5.5); Sodium 142 mmol/L (135-145); Total Bilirubin 0.4 mg/dL (0.3-1.2)
[2023-07-14 19:57] LABS: Urine Creatinine 84.7 mg/dL (28.0-217.0)
== END | disposition home or self-care (01) ==
LOC: LABWHC1 09:27
PROVIDERS: ATTEND Internal Medicine Endocrinology, Diabetes & Metabolism
DX: E11.65 Type 2 diabetes mellitus with hyperglycemia (principal)
CPT/HCPCS: 36415; 80053; 80061; 82043; 82570; 83036; 84443

== ENCOUNTER → 2023-07-24 | Outpatient (CLI) | payer MEDICARE ==
--- NOTE | 2023-07-25 09:44 | US ---
EXAMINATION TYPE: US thyroid st tissue head/neck DATE OF EXAM: 07/24/2023 COMPARISON: NONE CLINICAL INDICATION: Female, 72 years old with history of R22.2 LOCALIZED SWELLING, MASS AND LUMP, TR UNK; Lump right neck x 2 years. Bilateral neck scanned, no abnormalities seen. IMPRESSION: Unremarkable ultrasound soft tissues of the neck
== END | disposition home or self-care (01) ==
LOC: RADUSWWP 12:27
PROVIDERS: ATTEND Family Medicine
DX: R22.2 Localized swelling, mass and lump, trunk (principal)
CPT/HCPCS: 76536

== ENCOUNTER → 2023-10-14 | Outpatient (CLI) | payer MEDICARE ==
[2023-10-14 15:56] LABS: ALT 21 U/L (8-44); AST 21 U/L (13-35); Albumin 4.3 g/dL (3.8-4.9); Albumin/Globulin Ratio 1.79 Ratio (1.60-3.17); Alkaline Phosphatase 73 U/L (41-126); BUN/Creat Ratio 26.56 Ratio (12.00-20.00); Blood Urea Nitrogen 23.9 mg/dL (9.0-27.0); Carbon Dioxide 22.9 mmol/L (21.6-31.8); Chloride 102 mmol/L (96-109); Chol/HDL Ratio 2.18 Ratio; Globulin 2.4 g/dL (1.6-3.3); Glucose 168 mg/dL (70-110); LDL Cholesterol,Calculated 44.9 mg/dL (0.0-131.0); Potassium 4.7 mmol/L (3.5-5.5); Sodium 140 mmol/L (135-145); Total Bilirubin 0.3 mg/dL (0.3-1.2); Total Protein 6.7 g/dL (6.2-8.2)
== END | disposition home or self-care (01) ==
LOC: LABWHC1 08:34
PROVIDERS: ATTEND Internal Medicine Endocrinology, Diabetes & Metabolism
DX: E11.65 Type 2 diabetes mellitus with hyperglycemia (principal)
CPT/HCPCS: 36415; 80053; 80061; 82043; 82570; 83036; 84443

== ENCOUNTER → 2023-12-25 | Outpatient (CLI) | payer MEDICARE ==
--- NOTE | 2023-12-25 14:27 | XR ---
EXAMINATION TYPE: XR ankle complete 3 views LT, XR foot complete 3 views LT DATE OF EXAM: 12/25/2023 Comparison: None Clinical History: 73-year-old female R52 pain Findings: Ankle: Circumferential soft tissue swelling. Ankle mortise is congruent with preservation of the distal tibi ofibular overlap. Talar dome is intact. There may be mild degenerative spurring along the posterior s ubtalar joint. Moderate-sized plantar heel spur. Some degenerative spurring along the dorsal talonavi cular joint. Vascular calcifications. No acute fracture, subluxation, dislocation. Left foot: Osteopenia. Mild degenerative change first MTP joint. Mild hallux valgus and bunion formation. Possib le type II accessory navicular which can become symptomatic in some patients. Bipartite os peroneum. No displaced fracture is seen. Impression: 1. Ankle: Circumferential soft tissue swelling. Moderate-sized plantar heel spur. Some degenerative s purring at the dorsal talonavicular joint. No acute osseous abnormality seen. 2. Foot: Osteopenia. 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 Possible type II accessory navicu lar which can become symptomatic in some patients. No displaced fracture is seen.
== END | disposition home or self-care (01) ==
LOC: RADXRMAIN 10:24
PROVIDERS: ATTEND Family Medicine
DX: M77.32 Calcaneal spur, left foot (principal); M85.872 Other specified disorders of bone density and structure, left ankle and foot; M19.072 Primary osteoarthritis, left ankle and foot

== ENCOUNTER → 2024-01-19 | Outpatient (CLI) | payer MEDICARE ==
[2024-01-19 14:57] LABS: ALT 20 U/L (8-44); AST 21 U/L (13-35); Albumin 4.3 g/dL (3.8-4.9); Albumin/Globulin Ratio 1.87 Ratio (1.60-3.17); Alkaline Phosphatase 81 U/L (41-126); Blood Urea Nitrogen 30.2 mg/dL (9.0-27.0); Calcium 10.3 mg/dL (8.7-10.3); Chloride 105 mmol/L (96-109); Chol/HDL Ratio 2.08 Ratio; Globulin 2.3 g/dL (1.6-3.3); Glucose 187 mg/dL (70-110); LDL Cholesterol,Calculated 46.2 mg/dL (0.0-131.0); Potassium 5.4 mmol/L (3.5-5.5); Sodium 139 mmol/L (135-145); Total Bilirubin 0.4 mg/dL (0.3-1.2); Total Protein 6.6 g/dL (6.2-8.2)
[2024-01-19 21:07] LABS: Urine Creatinine 62.7 mg/dL (28.0-217.0)
== END | disposition home or self-care (01) ==
LOC: LABWHC1 08:06
PROVIDERS: ATTEND Internal Medicine Endocrinology, Diabetes & Metabolism
DX: E11.65 Type 2 diabetes mellitus with hyperglycemia (principal)
CPT/HCPCS: 36415; 80053; 80061; 82043; 82570; 83036; 84443

== ENCOUNTER → 2024-06-01 | Outpatient (CLI) | payer MEDICARE ==
--- NOTE | 2024-06-04 19:18 | BD ---
EXAMINATION TYPE: Axial Bone Density DATE OF EXAM: 06/01/2024 CLINICAL HISTORY: 73 years old Female. ICD-10 CODE: Z78.0 MENOPAUSAL STATE Height: 65.5 Weight: 239 FRAX RISK QUESTIONS: Family History (Parent hip fracture): no History of Fracture in Adulthood: no Secondary Osteoporosis: yes 3. Menopause before 45: 40 RISK FACTORS HISTORY OF: Surgery to Spine/Hip(right/left)/Wrist (right/left): no MEDICATIONS: Thyroid Medications: yes Which medication: Levothyroxine How Lon+ years Osteoporosis Medications: no EXAM MEASUREMENTS: Bone mineral densitometry was performed using the [email or web address] System. Bone mineral density as measured about the Lumbar spine is: ----- L1-L4(G/cm2): 1.346 T Score Values are as follows: ----- L1: 1.2 ----- L2: 2.1 ----- L3: 1.8 ----- L4: 0.4 ----- L1-L4: 1.4 Z Score Values are as follows: ----- L1: 1.8 ----- L2: 2.7 ----- L3: 2.3 ----- L4: 1.0 ----- L1-L4: 1.9 Bone mineral density has: Increased 0.9% since study of: 03/15/2019 Bone mineral density about the R hip (g/cm2): 0.870 Bone mineral density about the L hip (g/cm2): 0.920 T Score values are as follows: -----R Neck: -2.1 -----L Neck: -1.3 -----R Total: -1.1 -----L Total: -0.7 Z Score values are as follows: -----R Neck: -1.1 -----L Neck: -0.2 -----R Total: -0.3 -----L Total: 0.1 Bone mineral density has: Decreased -9.6% since study of: 03/15/2019 FRAX%s: The graph provided illustrates a 11.5% chance for a major osteoporotic fx and a 2.5% chance f or the hips probability for fx in 10 years time. IMPRESSION: Osteopenia (T Score between -2.5 and -1). There is slightly increased risk of fracture and the patient may be considered for treatment. Re-Screen 2-5 years. NOTE: T-SCORE=SD OF THE YOUNG ADULT MEAN. [facility], , 06/04/2024 7:16 PM
--- NOTE | 2024-06-06 22:06 | MM ---
Reason for Exam: Screening (asymptomatic). Last mammogram was performed 1 year(s) and 1 month(s) ago. Patient History: Menarche at age 17. First Full-Term at age 32. Late child-bearing (after 30). Postmenopausal. Benign Excisional Biopsy. 03/01/2014, Benign Core Biopsy on the left side. Sister had breast cancer, age 66. Mother had ovarian cancer, age 75. Risk Values: Reema 5 year model risk: 4.8%. NCI Lifetime model risk: 12.2%. Prior Study Comparison: 12/19/2020 Left Diagnostic Mammogram, [facility]. 04/29/2022 Bilateral MG 3D screening mammo w/cad, [facility]. 04/30/2023 Bilateral MG 3D screening mammo w/cad, [facility]. Tissue Density: There are scattered areas of fibroglandular density. Findings: Analyzed By CAD. The pattern is symmetrical. Multiple benign calcifications are present bilaterally. Benign vascular calcifications present. No significant interval change is evident. Some underlying chronic nodularity is present bilaterally. Core marker is within the left breast. No suspicious groups of microcalcifications, spiculated or lobular masses, architectural distortion or other secondary signs of malignancy are mammographically apparent. Overall Assessment: Benign, BI-RAD 2 Management: Screening Mammogram of both breasts in 1 year. A negative mammogram report should not preclude additional follow up of suspicious palpable abnormalities. Patient should continue monthly self breast exam. A clinical breast exam by your physician is recommended on an annual basis and results should be correlated with mammographic findings. Note on Reema scores and lifetime risk: 1. A Reema score greater than 3% is considered moderate risk. If this is the case, consider specialist referral to assess eligibility for a risk reducing agent. 2. If overall lifetime risk for the development of breast cancer is 20% or higher, the patient may qualify for future screening with alternating mammogram and breast MRI. [facility], , 06/06/2024 10:03 PM. Electronically signed and approved by: Sandeep Heaton D.O. Radiologis
== END | disposition home or self-care (01) ==
LOC: RADMAMWWP 12:30
PROVIDERS: ATTEND Family Medicine
DX: Z12.31 Encounter for screening mammogram for malignant neoplasm of breast (principal); Z78.0 Asymptomatic menopausal state; Z80.3 Family history of malignant neoplasm of breast; R92.323 Mammographic fibroglandular density, bilateral breasts; M81.8 Other osteoporosis without current pathological fracture
CPT/HCPCS: 77063; 77067; 77080

== ENCOUNTER → 2024-07-09 | Outpatient (CLI) | payer MEDICARE | END | disposition home or self-care (01) | LOC: LABWHC1 08:22 | PROVIDERS: ATTEND Internal Medicine Endocrinology, Diabetes & Metabolism | DX: Z53.9 Procedure and treatment not carried out, unspecified reason (principal) ==

== ENCOUNTER → 2024-07-09 | Outpatient (CLI) | payer MEDICARE ==
[2024-07-09 14:58] LABS: Basophils # (A) 0.06 X 10*3/uL (0.00-0.10); Eosinophils # (A) 0.12 X 10*3/uL (0.04-0.35); HCT 37.4 % (37.2-46.3); HGB 12.1 g/dL (12.0-15.0); Lymphocytes # (A) 1.64 X 10*3/uL (0.90-5.00); Lymphocytes % (A) 27.7 %; MCHC 32.4 g/dL (32.0-37.0); MCV 92.6 FL (80.0-97.0); Mean Platelet Volume 9.9 FL (9.5-12.2); Monocytes # (A) 0.51 X 10*3/uL (0.20-1.00); Monocytes % (A) 8.6 %; NRBC Per 100 WBC 0 X 10*3/uL (0.00-0.01); Neutrophils # (A) 3.53 X 10*3/uL (1.80-7.70); Neutrophils % (A) 59.9 %; Platelet Count 287 X 10*3/uL (140-440); RBC 4.04 X 10*6/uL (4.10-5.20); RDW 13.2 % (11.5-14.5); WBC 5.91 X 10*3/uL (4.50-10.00)
[2024-07-09 15:25] LABS: Appearance,Urine Cloudy (Clear); Bilirubin,Urine Negative (Negative); Blood,Urine Negative (Negative); Color,Urine Yellow (Yellow); Ketones,Urine Negative (Negative); Nitrite,Urine Negative (Negative); PH, Urine 5.5; Specific Gravity,Urine 1.022 (1.001-1.030); Urobilinogen,Urine 0.2 E.U./DL
[2024-07-09 15:33] LABS: Bacteria,Urine 3+ (None Seen)
[2024-07-09 17:10] LABS: % Iron Saturation 16.96 (12.00-45.00); ALT 22 U/L (8-44); AST 21 U/L (13-35); Albumin 4.1 g/dL (3.8-4.9); Albumin/Globulin Ratio 1.95 Ratio (1.60-3.17); Alkaline Phosphatase 79 U/L (41-126); Blood Urea Nitrogen 26.6 mg/dL (9.0-27.0); Calcium 9.7 mg/dL (8.7-10.3); Chloride 104 mmol/L (96-109); Chol/HDL Ratio 2.09 Ratio; Globulin 2.1 g/dL (1.6-3.3); Glucose 186 mg/dL (70-110); Iron 48 UG/DL (50-170); LDL Cholesterol,Calculated 55.4 mg/dL (0.0-131.0); Magnesium 2.2 mg/dL (1.5-2.4); Potassium 5.3 mmol/L (3.5-5.5); Sodium 138 mmol/L (135-145); Total Bilirubin 0.3 mg/dL (0.3-1.2); Total Iron Binding Capacity 283 UG/DL (228-460); Total Protein 6.2 g/dL (6.2-8.2)
== END | disposition home or self-care (01) ==
LOC: LABWHC1 08:25
PROVIDERS: ATTEND Nurse Practitioner Family
DX: E55.9 Vitamin D deficiency, unspecified (principal); N25.81 Secondary hyperparathyroidism of renal origin; N39.0 Urinary tract infection, site not specified; N18.32 Chronic kidney disease, stage 3b; D69.9 Hemorrhagic condition, unspecified; R80.9 Proteinuria, unspecified
CPT/HCPCS: 36415; 80053; 80061; 81001; 82043; 82306; 82570; 82728; 83036; 83540; 83550; 83735; 83970; 84443; 85025

== ENCOUNTER → 2025-01-03 | Outpatient (CLI) | payer MEDICARE ==
[2025-01-03 15:33] LABS: Appearance,Urine Clear (Clear); Bilirubin,Urine Negative (Negative); Blood,Urine Negative (Negative); Color,Urine Yellow (Yellow); Ketones,Urine Negative (Negative); Nitrite,Urine Negative (Negative); PH, Urine 5.5; Specific Gravity,Urine 1.016 (1.001-1.030); Urobilinogen,Urine 0.2 E.U./DL
[2025-01-03 15:38] LABS: Basophils # (A) 0.06 X 10*3/uL (0.00-0.10); Basophils % (A) 0.9 %; Eosinophils # (A) 0.17 X 10*3/uL (0.04-0.35); Eosinophils % (A) 2.6 %; HCT 38.2 % (37.2-46.3); HGB 11.8 g/dL (12.0-15.0); Lymphocytes # (A) 1.42 X 10*3/uL (0.90-5.00); Lymphocytes % (A) 21.9 %; MCH 28.7 pg (27.0-32.0); MCHC 30.9 g/dL (32.0-37.0); MCV 92.9 FL (80.0-97.0); Monocytes # (A) 0.55 X 10*3/uL (0.20-1.00); Monocytes % (A) 8.5 %; NRBC Per 100 WBC 0 X 10*3/uL (0.00-0.01); Neutrophils # (A) 4.23 X 10*3/uL (1.80-7.70); Neutrophils % (A) 65.2 %; Platelet Count 280 X 10*3/uL (140-440); RBC 4.11 X 10*6/uL (4.10-5.20); RDW 13.2 % (11.5-14.5); WBC 6.49 X 10*3/uL (4.50-10.00)
[2025-01-03 16:08] LABS: % Iron Saturation 13.56 (12.00-45.00); ALT 26 U/L (8-44); AST 23 U/L (13-35); Albumin/Globulin Ratio 1.67 Ratio (1.60-3.17); Alkaline Phosphatase 97 U/L (41-126); BUN/Creat Ratio 35.11 Ratio (12.00-20.00); Blood Urea Nitrogen 31.6 mg/dL (9.0-27.0); Calcium 9.5 mg/dL (8.7-10.3); Carbon Dioxide 20.4 mmol/L (21.6-31.8); Chloride 106 mmol/L (96-109); Chol/HDL Ratio 2.29 Ratio; Ferritin 95.5 ng/mL (10.0-291.0); Globulin 2.4 g/dL (1.6-3.3); Glucose 178 mg/dL (70-110); Iron 40 UG/DL (50-170); LDL Cholesterol,Calculated 59.4 mg/dL (0.0-131.0); Magnesium 1.9 mg/dL (1.5-2.4); Phosphorus 3.6 mg/dL (2.4-5.1); Potassium 5.3 mmol/L (3.5-5.5); Sodium 138 mmol/L (135-145); Total Bilirubin 0.2 mg/dL (0.3-1.2); Total Iron Binding Capacity 295 UG/DL (228-460); Total Protein 6.4 g/dL (6.2-8.2); Uric Acid 3.6 mg/dL (2.9-7.7)
[2025-01-03 20:42] LABS: Urine Creatinine 58.7 mg/dL (28.0-217.0)
== END | disposition home or self-care (01) ==
LOC: LABWHC1 08:52
PROVIDERS: ATTEND Internal Medicine Endocrinology, Diabetes & Metabolism
DX: E55.9 Vitamin D deficiency, unspecified (principal); E11.65 Type 2 diabetes mellitus with hyperglycemia; N18.32 Chronic kidney disease, stage 3b; N25.81 Secondary hyperparathyroidism of renal origin; M10.9 Gout, unspecified; N39.0 Urinary tract infection, site not specified; D63.1 Anemia in chronic kidney disease; R80.9 Proteinuria, unspecified
CPT/HCPCS: 36415; 80053; 80061; 81003; 82043; 82306; 82570; 82728; 83036; 83540; 83550; 83735; 83970; 84100; 84443; 84550; 85025